=== PATIENT | female | born 1965 | race Hispanic/Latino ===

== ENCOUNTER → 2024-10-07 | Outpatient (CLI) | payer BC ==
--- NOTE | 2024-10-07 10:03 | HMCIMG ---
Exam Type: US THYROID/NECK Clinical Information: THYROTOXICOSIS Comparison: None Findings: Both thyroid lobes are of normal size. The right thyroid lobe demonstrates a hypoechoic nodule of the upper interpolar region measuring 9 mm, and midpole peripheral lateral nodule measuring 5 mm and a simple cyst lower pole measuring 2 mm. No nodules are seen on the left side. IMPRESSION: Well-circumscribed probably benign nodules of the right thyroid lobe. One-year follow-up ultrasound recommended.
== END | disposition home or self-care (01) ==
LOC: RAH 09:10
PROVIDERS: ATTEND Family Medicine
DX: E05.90 Thyrotoxicosis, unspecified without thyrotoxic crisis or storm (principal)
CPT/HCPCS: 76536

== ENCOUNTER → 2025-03-03 | Outpatient (CLI) | payer BC ==
--- NOTE | 2025-03-03 16:40 | HMCIMG ---
US THYROID/NECK HISTORY: Follow-up COMPARISON: 10/07/2024 TECHNIQUE: Thyroid ultrasound study was performed. FINDINGS: Right thyroid lobe measures 5.4 x 1.7 x 1.9 cm. Left thyroid lobe measures 4.3 x 1.6 x 1.6 cm. There is stable right upper pole thyroid nodule measuring 8 x 8 x 7 mm unchanged. IMPRESSION: 1. Stable right apical thyroid nodule unchanged.
== END | disposition home or self-care (01) ==
LOC: RAH 12:33
PROVIDERS: ATTEND Internal Medicine Endocrinology, Diabetes & Metabolism
DX: E04.1 Nontoxic single thyroid nodule (principal); E05.90 Thyrotoxicosis, unspecified without thyrotoxic crisis or storm
CPT/HCPCS: 76536